=== PATIENT | female | born 1960 | race Caucasian/White ===

== ENCOUNTER 2016-06-28 10:53 | Emergency (ER) | payer OTHER ==
[2016-06-28 10:58] VITALS: BP 99/62; PULSE 76; TEMP 97.6; BMI 39.0
--- NOTE | 2016-06-28 11:05 | PDOC ---
History of Present Illness - General Chief Complaint: Injury Stated Complaint: FALL/ WRIST INJURY Time Seen by Provider: 06/28/16 11:03 History Source: Patient Exam Limitations: No Limitations - History of Present Illness Initial Comments: 06/28/16 11:37 Slipped and fell on ice this morning, extending hand outwards and falling onto ground. Patient sustained wrist injury, denies other areas of pain. Occurred: reports: just prior to arrival Severity: reports: moderate Pain Location: reports: upper extremity (left wrist) Modifying Factors: improves with: None, cold therapy Loss of Consciousness: no loss of consciousness Associated Symptoms (Fall): denies symptoms Past History - Travel Traveled outside of the country in the last 30 days: No Close contact w/someone who was outside of country & ill: No - Past Medical History Allergies/Adverse Reactions: Allergies Allergy/AdvReac Type Severity Reaction Status Date / Time No Known Allergies Allergy Verified 06/28/16 10:55 Home Medications: Ambulatory Orders Acetaminophen W/ Codeine #3 [Tylenol # 3] 1 combo PO Q4H PRN #14 tablet MDD 4 Bupropion HCl [Wellbutrin Sr] 150 mg PO DAILY 06/28/16 Eszopiclone [Lunesta] 1 mg PO DAILY 06/28/16 - Psycho/Social/Smoking Cessation Hx Suicidal Ideation: No Smoking History: Never smoked Have you smoked in the past 12 months: No Information on smoking cessation initiated: No Hx Alcohol Use: No Drug/Substance Use Hx: No Trauma Specific PMHX - Complaint Specific PMHX Back Injury: No Neck Injury: No Review of Systems - Review of Systems Able to Perform ROS?: Yes Is the patient limited Arabic proficient: Yes Constitutional: Yes: Symptoms Reported, See HPI HEENTM: No: Symptoms Reported Respiratory: No: Symptoms reported Musculoskeletal: Yes: Symptoms Reported, See HPI, Joint Pain, Joint Swelling Integumentary: Yes: Symptoms Reported, See HPI All Other Systems: Reviewed and Negative *Physical Exam - Vital Signs Last Vital Signs Temp Pulse Resp BP Pulse Ox 97.6 F 76 20 99/62 100 06/28/16 10:55 06/28/16 10:55 06/28/16 10:55 06/28/16 10:55 06/28/16 10:55 - Physical Exam General Appearance: Yes: Nourished, Appropriately Dressed, Apparent Distress, Mild Distress HEENT: positive: INEZ, Normal ENT Inspection, Normal Voice Neck: positive: Supple Respiratory/Chest: positive: Lungs Clear Musculoskeletal: negative: Normal Inspection, Vertebral Tenderness Extremity: positive: Normal Capillary Refill. negative: Normal Inspection ( mild deformity noted to the distal aspect of left wrist, with tenderness reproduced at distal radius and ulna. Has strong grasp, flexion and extension to fingers, but pain is reproduced with flexion and extension at wrist joint. No elbow tenderness no shoulder tenderness. Radial and ulnar pulses palpable), Normal Range of Motion Integumentary: positive: Dry, Pale, Swelling, Bruising Neurologic: positive: floor mechanic II-XII NML intact, Fully Oriented, Alert, Normal Mood/ Affect, Normal Response, Motor Strength 5/5 Progress Note - Progress Note Progress Note: Impacted distal radius and ulnar fracture, splinted and will send to orthopedist for further evaluation and treatment *DC/Admit/Observation/Transfer Diagnosis at time of Disposition: Wrist fracture, left Qualifiers: Encounter type: initial encounter Fracture type: closed Qualified Code(s): S62.102A - Fracture of unspecified carpal bone, left wrist, initial encounter for closed fracture - Discharge Dispostion Disposition: HOME Condition at time of disposition: Stable Admit: No - Prescriptions Prescriptions: Acetaminophen W/ Codeine #3 [Tylenol # 3] 1 combo PO Q4H PRN #14 tablet MDD 4 PRN Reason: Pain - Referrals Referrals: Colby Barraza MD [Staff Physician] - - Patient Instructions Printed Discharge Instructions: DI for Wrist Fracture Additional Instructions: Rest, ice to area on and off for 15 minutes 4-6 times a day Avoid heavy lifting or exercise until pain and swelling is resolved or until further directed Keep area highly elevated to reduce swelling Use splints/Scooter wrap as directed Followup with orthopedist in one to 2 days if not improving, if significantly improved may wait one week for followup with orthopedist May use ibuprofen 2-200 mg tablets every 6 hours as needed for pain - Post Discharge Activity Work/School Note: Back to Work
== END 2016-06-28 11:52 | disposition home or self-care (01) ==
LOC: JERFT 10:53
PROC: 2W39X1Z Immobilization of Left Upper Extremity using Splint (ICD-10-PCS; principal; 2016-06-28)
DX: S59.292A Other physeal fracture of lower end of radius, left arm, initial encounter for closed fracture (principal); S52.612A Displaced fracture of left ulna styloid process, initial encounter for closed fracture; W00.0XXA Fall on same level due to ice and snow, initial encounter; Y93.01 Activity, walking, marching and hiking; Y92.488 Other paved roadways as the place of occurrence of the external cause
CPT/HCPCS: 73110-TC-LT; 99282-25